=== PATIENT | male | born 1985 | race Caucasian/White ===

== ENCOUNTER 2017-08-21 15:47 | Emergency (ER) | payer OTHER ==
[2017-08-21 16:09] VITALS: BMI 22.6
[2017-08-21 16:10] VITALS: O2SAT 99
[2017-08-21] MEDS ORDERED: Sodium Chloride 0.9% 1,000 ML IV ONE (17:05)
[2017-08-21 18:01] LABS: CHLORIDE 95 mmol/L (98-107)
[2017-08-21 18:02] LABS: SODIUM 138 mmol/L (132-148)
[2017-08-21 18:04] LABS: BILIRUBIN,TOTAL 0.8 mg/dL (0.2-1.3); CARBON DIOXIDE 25 mmol/L (22-30); GFR AFRICAN-AMERICAN > 60
[2017-08-21 18:05] LABS: ALB/GLOB RATIO 1.3 (1.0-2.1); ALKALINE PHOSPHATASE 63 U/L (38-126); ALT/SGPT 48 U/L (21-72); AST/SGOT 25 U/L (17-59); BLOOD UREA NITROGEN 11 mg/dL (9-20); CALCIUM 8.9 mg/dl (8.6-10.4); GLUCOSE,RANDOM 71 mg/dL (75-110); TOTAL PROTEIN 8.1 g/dL (6.3-8.3)
--- NOTE | 2017-08-21 18:06 | C.PDOC ---
History Of Present Illness <Daina Hernandez - Last Filed: 08/21/17 18:58> <Gabriel Lujan - Last Filed: 08/21/17 22:05> 32 yr old male presents to the ER for evaluation of diffuse lower abdominal pain , associated with watery diarrhea for the past 8 days. Patient states " whatever I eat, I have to go to the bathroom afterwards". Patient also reports of decrease appetite. Patient denies fever, chills, chest pain, SOB, nausea, vomiting, blood in the vomit, blood in the diarrhea, dysuria, weakness, numbness or use of antibiotics. Ambulate to Ed for evaluation. (Daina Hernandez ) History Per: Patient History/Exam Limitations: no limitations Onset/Duration Of Symptoms: Days (8) Current Symptoms Are (Timing): Still Present <Daina Hernandez - Last Filed: 08/21/17 18:58> <Gabriel Lujan - Last Filed: 08/21/17 22:05> Time Seen by Provider: 08/21/17 17:04 Chief Complaint (Nursing): Abdominal Pain Past Medical History Reviewed: Historical Data, Nursing Documentation, Vital Signs Family History: States: No Known Family Hx - Social History Hx Tobacco Use: No Hx Alcohol Use: No Hx Substance Use: No - Immunization History Hx Tetanus Toxoid Vaccination: Yes Hx Influenza Vaccination: No Hx Pneumococcal Vaccination: No <Daina Hernandez - Last Filed: 08/21/17 18:58> Vital Signs: Last Vital Signs Temp 98 F 08/21/17 22:00 Pulse 60 08/21/17 22:00 Resp 16 08/21/17 22:00 BP 115/71 08/21/17 22:00 Pulse Ox 99 08/21/17 22:00 Review Of Systems Except As Marked, All Systems Reviewed And Found Negative. Constitutional: Negative for: Fever, Chills Cardiovascular: Negative for: Chest Pain Respiratory: Negative for: Shortness of Breath Gastrointestinal: Positive for: Abdominal Pain (Diffuse lower abdominal pain), Diarrhea (Watery diarrhea. No blood.). Negative for: Nausea, Vomiting Genitourinary: Negative for: Dysuria Neurological: Negative for: Weakness, Numbness <Daina Hernandez - Last Filed: 08/21/17 18:58> Physical Exam - Physical Exam Appears: Non-toxic, No Acute Distress Skin: Warm, Dry, No Rash Head: Normacephalic Eye(s): bilateral: PERRL Nose: No Flaring Oral Mucosa: Moist Throat: No Erythema, No Drooling Neck: Supple Chest: Symmetrical, No Tenderness Cardiovascular: Rhythm Regular, No Murmur Respiratory: No Decreased Breath Sounds, No Accessory Muscle Use, No Rales, No Rhonchi, No Stridor, No Wheezing Gastrointestinal/Abdominal: Soft, Tenderness (Moderate LLQ tenderness.), No Distention, No Guarding, No Rebound Back: No CVA Tenderness Extremity: Normal ROM, No Swelling Neurological/Psych: Oriented x3, Normal Speech, Normal Motor <Daina Hernandez - Last Filed: 08/21/17 18:58> ED Course And Treatment - Laboratory Results Result Diagrams: 08/21/17 17:51 08/21/17 17:51 O2 Sat by Pulse Oximetry: 99 (RA) Pulse Ox Interpretation: Normal Progress Note: Pt remained stable during the ED evaluation. case discussed, sign out to : blood work, CT abd/pelvis, re-eval and dispo pending. <Daina Hernandez - Last Filed: 08/21/17 18:58> - Laboratory Results Result Diagrams: 08/21/17 17:51 08/21/17 17:51 <Gabriel Lujan - Last Filed: 08/21/17 22:05> Medical Decision Making <Daina Hernandez - Last Filed: 08/21/17 18:58> <Gabriel Lujan - Last Filed: 08/21/17 22:05> Medical Decision Making: PLAN: * CT - Abd & Pelvis * CBC * CMP * Urinalysis * Pepcid IVP * Protonix IVP * Zofran IVP * Sodium Chloride IV * (Daina Hernandez) Disposition - Disposition Disposition Time: 18:58 <Daina Hernandez - Last Filed: 08/21/17 18:58> Counseled Patient/Family Regarding: Diagnosis - Disposition Disposition Time: 22:04 - POA Present On Arrival: None <Gabriel Lujan Last Filed: 08/21/17 22:05> - Disposition Referrals: 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 - Scribe Statement The provider has reviewed the documentation as recorded by the Scribe <Daina Hernandez - Last Filed: 08/21/17 18:58> <Gabriel Lujan - Last Filed: 08/21/17 22:05> - Scribe Statement Cassandra Mark All medical record entries made by the Scribe were at my direction and personally dictated by me. I have reviewed the chart and agree that the record accurately reflects my personal performance of the history, physical exam, medical decision making, and the department course for this patient. I have also personally directed, reviewed, and agree with the discharge instructions and disposition. (Daina Hernandez) Physician Patient Turnover Patient Signed Over To: Gabriel Lujan Handoff Comments: blood work, CT abd/pelvis, re-eval, dispo. <Daina Hernandez - Last Filed: 08/21/17 18:58>
[2017-08-21 18:37] LABS: RBC URINE < 1 /hpf (0-3); URINE BILIRUBIN NEGATIVE (NEGATIVE); URINE BLOOD TRACE (NEGATIVE); URINE COLOR Yellow (YELLOW); URINE GLUCOSE (UA) NORMAL (Normal); URINE KETONE NEGATIVE (NEGATIVE); URINE LEUKOCYTE ESTERASE NEG Leu/uL (Negative); URINE PROTEIN NEGATIVE (NEGATIVE); URINE UROBILINOGEN NORMAL mg/dL (0.2-1.0); WBC URINE < 1 /hpf (0-5)
[2017-08-21 18:45] LABS: BASO % 0.6 % (0.0-2.0); EOS # 0.3 K/uL (0.0-0.7); EOS % 5.1 % (0.0-4.0); LYMPH # 1.9 K/uL (1.0-4.3); LYMPH % 29.3 % (20.0-40.0); MEAN CELL VOLUME 87.4 fL (80.0-94.0); MEAN CORPUSCULAR HEMOGLOBIN 31.1 pg (27.0-31.0); MEAN CORPUSCULAR HGB CONC 35.6 g/dL (33.0-37.0); MONO # 0.5 K/uL (0.0-0.8); MONO % 7.3 % (0.0-10.0); NRBC % 0.4 % (0.0-2.0); RED CELL DISTRIBUTION WIDTH 12.9 % (11.5-14.5); WHITE BLOOD COUNT 6.6 K/uL (4.8-10.8)
[2017-08-21] MEDS ORDERED: Iohexol 350mg/ml 100 ML ONE (18:45)
--- NOTE | 2017-08-21 21:13 | CT ---
EXAM: CT Abdomen and Pelvis With Intravenous Contrast EXAM DATE/TIME: 08/21/2017 5:23 PM CLINICAL HISTORY: 32 years old, male; Pain; Abdominal pain; Flank; Left upper quadrant (luq); Additional info: Llq pain TECHNIQUE: Axial computed tomography images of the abdomen and pelvis with intravenous contrast. All CT scans at this facility use one or more dose reduction techniques, viz.: automated exposure control; ma/kV adjustment per patient size (including targeted exams where dose is matched to indication; i.e. head); or iterative reconstruction technique. Coronal and sagittal reformatted images were created and reviewed. CONTRAST: 100 mL of omnipaque 350 administered intravenously. COMPARISON: There are no prior studies for comparison. FINDINGS: Artifacts: Motion artifact degrades image quality. Lower thorax: Heart size is normal. Lung bases are clear ABDOMEN: Liver: There is fatty infiltration of the liver. Gallbladder and bile ducts: unremarkable Pancreas: unremarkable Spleen: unremarkable Adrenals: unremarkable Kidneys and ureters: unremarkable Stomach and bowel: Stomach is incompletely distended which accentuates the gastric wall. Bowel rotation is normal. Streaky and motion limit evaluation of small and large bowel. Proximal small bowel is mildly dilated with scattered air-fluid levels. There is mild wall thickening. Distention decreases in the mid small bowel. There is fluid and air throughout the small bowel. Appendix and terminal ileum are unremarkable. Colon is incompletely distended which limits evaluation. There is minimal diverticulosis Appendix: See above. PELVIS: Bladder: unremarkable Reproductive: Seminal vesicles and prostate are unremarkable. ABDOMEN and PELVIS: Intraperitoneal space: There is no free air or free fluid. Bones/joints: There are no acute osseous abnormalities. Soft tissues: unremarkable Vasculature: Vascular structures are unremarkable. Lymph nodes: There is shotty adenopathy. IMPRESSION: Gastric wall prominence, underdistention versus true thickening; ileus with possible enteritis, no obstruction; no appendicitis or diverticulitis; fatty liver
[2017-08-21 22:01] VITALS: BP 115/71; PULSE 60; RESP 16; TEMP 98
== END 2017-08-21 22:15 | disposition home or self-care (01) ==
LOC: C.ER 15:47
DX: K52.9 Noninfective gastroenteritis and colitis, unspecified (principal); R10.32 Left lower quadrant pain
CPT/HCPCS: 74177; 80053; 81001; 83690; 85025; 96361; 96374; 96375; 99284; C9113; J2405; J7040; Q9967

== ENCOUNTER 2017-10-25 12:30 | Emergency (ER) | payer OTHER ==
[2017-10-25 12:30] VITALS: BMI 22.6
--- NOTE | 2017-10-25 14:34 | CT ---
PROCEDURE: CT OF THE TEMPORAL BONES WITHOUT CONTRAST HISTORY: hemotympanium R side, r/o ana maria distruction COMPARISON: None available. TECHNIQUE: High resolution axial images of the temporal bones were obtained. Coronal and sagittal reformats were generated. Radiation dose: Total exam DLP = 674 mGy-cm. This CT exam was performed using one or more of the following dose reduction techniques: Automated exposure control, adjustment of the mA and/or kV according to patient size, and/or use of iterative reconstruction technique. FINDINGS: RIGHT TEMPORAL BONE: RIGHT MIDDLE EAR: There is minimal soft tissue thickening adjacent to the ossicles. No evidence of bony erosion RIGHT INNER EAR: Cochlea: Normal Semicircular canals: Normal RIGHT MASTOID AIR CELLS: There is partial opacification of a large mastoid air cell inferiorly. This is of uncertain significance. The remaining air cells are well-aerated. RIGHT INTERNAL AUDITORY CANAL: Normal RIGHT EXTERNAL AUDITORY CANAL: Normal RIGHT VESTIBULAR AND COCHLEAR AQUEDUCT: Normal OTHER: LEFT TEMPORAL BONE: LEFT MIDDLE EAR: Normal LEFT INNER EAR: Cochlea: Normal Semicircular canals: Normal LEFT MASTOID AIR CELLS: Normal LEFT INTERNAL AUDITORY CANAL: Normal LEFT EXTERNAL AUDITORY CANAL: Normal LEFT VESTIBULAR AND COCHLEAR AQUEDUCTS: Normal OTHER FINDINGS: There is moderate mucosal thickening in the maxillary sinuses. There is partial opacification of the ethmoid air cells.. IMPRESSION: No evidence of fracture or bony destruction in the right temporal bone. No evidence of significant mastoiditis or otitis media. Severe mucosal thickening in the maxillary sinuses and partial opacification of ethmoid sinuses.
--- NOTE | 2017-10-25 14:44 | C.PDOC ---
History Of Present Illness 32 y/o male presents to the ER complaining of right ear pain today. Patient states that there was no trauma, injury, URI symptoms, prior illness, and headache. Has no other complaints. Time Seen by Provider: 10/25/17 12:52 Chief Complaint (Nursing): ENT Problem History Per: Patient History/Exam Limitations: no limitations Onset/Duration Of Symptoms: Hrs Current Symptoms Are (Timing): Still Present Past Medical History Reviewed: Historical Data, Nursing Documentation, Vital Signs Vital Signs: Last Vital Signs Temp 98.4 F 10/25/17 15:09 Pulse 76 10/25/17 15:09 Resp 18 10/25/17 15:09 BP 127/84 10/25/17 15:09 Pulse Ox 98 10/25/17 15:34 - Medical History PMH: No Chronic Diseases Surgical History: No Surg Hx Family History: States: No Known Family Hx - Social History Hx Tobacco Use: No Hx Alcohol Use: No Hx Substance Use: No - Immunization History Hx Tetanus Toxoid Vaccination: Yes Hx Influenza Vaccination: No Hx Pneumococcal Vaccination: No Review Of Systems Constitutional: Negative for: Fever ENT: Positive for: Ear Pain. Negative for: Throat Pain Respiratory: Negative for: Cough, Sputum Skin: Positive for: Rash (red painless, non pruritic rash to the forehead). Negative for: Lesions Neurological: Negative for: Headache Physical Exam - Physical Exam Appears: Well, Non-toxic, Other (mild painful distress) Skin: Normal Color, Warm, Rash (+erythematous circular rash with central clearing to the R side of the forehead) Head: Atraumatic, Normacephalic Eye(s): bilateral: Normal Inspection, PERRL Ear(s): Right: Other (blood noted behind right TM, ear canal is wnl, no tenderness to the mastoid) Nose: Normal Oral Mucosa: Moist Neck: Supple Chest: Symmetrical Cardiovascular: Rhythm Regular Respiratory: Normal Breath Sounds, No Accessory Muscle Use Neurological/Psych: Oriented x3, Normal Speech, Normal Cognition ED Course And Treatment O2 Sat by Pulse Oximetry: 98 (RA) Pulse Ox Interpretation: Normal - Physician Consult Information Time Consulting Physician Contacted: 13:11 Physician Contacted: Outcome Of Conversation: reccommended a CT temporal bone w/o contrast. Medical Decision Making Medical Decision Making: Impression: Right Ear Pain Plan: Tylenol 650 mg PO IAC w/o Contrast Time: 1400 CT IAC FINDINGS: RIGHT TEMPORAL BONE: RIGHT MIDDLE EAR: There is minimal soft tissue thickening adjacent to the ossicles. No evidence of bony erosion RIGHT INNER EAR: Cochlea: Normal Semicircular canals: Normal RIGHT MASTOID AIR CELLS: There is partial opacification of a large mastoid air cell inferiorly. This is of uncertain significance. The remaining air cells are well-aerated. RIGHT INTERNAL AUDITORY CANAL: Normal RIGHT EXTERNAL AUDITORY CANAL: Normal RIGHT VESTIBULAR AND COCHLEAR AQUEDUCT: Normal OTHER: LEFT TEMPORAL BONE: LEFT MIDDLE EAR: Normal LEFT INNER EAR: Cochlea: Normal Semicircular canals: Normal LEFT MASTOID AIR CELLS: Normal LEFT INTERNAL AUDITORY CANAL: Normal LEFT EXTERNAL AUDITORY CANAL: Normal LEFT VESTIBULAR AND COCHLEAR AQUEDUCTS: Normal OTHER FINDINGS: There is moderate mucosal thickening in the maxillary sinuses. There is partial opacification of the ethmoid air cells.. IMPRESSION: No evidence of fracture or bony destruction in the right temporal bone. No evidence of significant mastoiditis or otitis media. Severe mucosal thickening in the maxillary sinuses and partial opacification of ethmoid sinuses. Disposition Counseled Patient/Family Regarding: Studies Performed, Diagnosis, Need For Followup - Disposition Referrals: Alberto Gutierrez MD [Staff Provider] - Disposition: HOME/ ROUTINE Disposition Time: 14:43 Condition: STABLE Additional Instructions: Follow up with ENT referral provided in 1-2 days for further evaluation. 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 - Scribe Statement The provider has reviewed the documentation as recorded by the Melissaibzak Pate All medical record entries made by the Melissaibzak were at my direction and personally dictated by me. I have reviewed the chart and agree that the record accurately reflects my personal performance of the history, physical exam, medical decision making, and the department course for this patient. I have also personally directed, reviewed, and agree with the discharge instructions and disposition.
[2017-10-25 15:10] VITALS: BP 127/84; PULSE 76; RESP 18; TEMP 98.4
[2017-10-25 15:27] VITALS: O2SAT 98
== END 2017-10-25 14:50 | disposition home or self-care (01) ==
LOC: C.ER 12:30
DX: H73.891 Other specified disorders of tympanic membrane, right ear (principal); B35.4 Tinea corporis

== ENCOUNTER 2018-04-30 16:26 | Emergency (ER) | payer SELFPAY ==
[2018-04-30 16:26] VITALS: BMI 22.6
[2018-04-30 16:31] VITALS: BP 142/84; PULSE 74; RESP 20; TEMP 98.5; O2SAT 98
--- NOTE | 2018-04-30 17:02 | RAD ---
PROCEDURE: Right Index finger radiographs. HISTORY: pain COMPARISON: None. TECHNIQUE: AP radiograph of the right hand, as well as spot oblique and lateral images of index finger were obtained. FINDINGS: RIGHT INDEX FINGER: Normal right index finger, without fracture or focal lesion. Remainder of the right hand (as seen on the AP view) grossly intact. JOINTS: Normal. SOFT TISSUES: Normal. OTHER FINDINGS: None. IMPRESSION: Normal right index finger radiographs.
--- NOTE | 2018-04-30 17:06 | C.PDOC ---
History Of Present Illness 32 yo male come in for evaluation of Right index finger swelling gradually developed for past 15 days. Pt reports, " pain is intermittent only on index movement". Otherwise, pt denies known trauma or injury, fever, chills, deformity , weakness, sensory or vascular deficits to Right hand. Ambulate to ED for evaluation, no t in any apparent distress. Time Seen by Provider: 04/30/18 16:33 Chief Complaint (Nursing): Finger,Hand,&Wrist History Per: Patient Past Medical History Reviewed: Historical Data, Nursing Documentation, Vital Signs Vital Signs: Last Vital Signs Temp 98.5 F 04/30/18 16:28 Pulse 74 04/30/18 16:28 Resp 20 04/30/18 16:28 BP 142/84 04/30/18 16:28 Pulse Ox 98 04/30/18 16:28 - Medical History PMH: Asthma Family History: States: Unknown Family Hx - Social History Hx Tobacco Use: No Hx Alcohol Use: No Hx Substance Use: No - Immunization History Hx Tetanus Toxoid Vaccination: Yes Hx Influenza Vaccination: No Hx Pneumococcal Vaccination: No Review Of Systems Except As Marked, All Systems Reviewed And Found Negative. Constitutional: Negative for: Fever, Chills ENT: Negative for: Throat Pain Musculoskeletal: Positive for: Hand Pain Skin: Negative for: Rash, Lesions Neurological: Negative for: Weakness, Numbness Physical Exam - Physical Exam Appears: Well, Non-toxic, No Acute Distress Skin: Normal Color, Warm, No Rash Head: Normacephalic Eye(s): bilateral: PERRL Extremity: Normal ROM (FAROM to Right index, no neurovascular deficits.), Tenderness (mild over Right 2nd PIPJ with small soft mass likely cyst, no edema. NO cellulitis, no flactulance.), Capillary Refill (less than 2sec to Right 2nd finger), No Deformity, No Swelling Neurological/Psych: Oriented x3, Normal Speech, Normal Motor, Normal Sensation, Normal Reflexes ED Course And Treatment O2 Sat by Pulse Oximetry: 98 Pulse Ox Interpretation: Normal - Other Rad Right 2nd finger X-Ray: Interpreted by Me, Viewed By Me Interpretation: (-) acute fx or dislocation Progress Note: On re-eval, pot is afebrile, hemodynamicaly stable. Right hand: exam c/w right 2nd PIPJ intra-articular cyst r/o ganglion cyst. FAROM, noneurovascular deficits, no clelulitis. Imaging review (-) acute fx or dislocation. Pt advised and ref. to F/u with hand specialsit. Return to ED if any new changes. Disposition Counseled Patient/Family Regarding: Diagnosis, Need For Followup, Rx Given - Disposition Referrals: [facility] at [facility] [Outside] Laure Guerrero MD [Staff Provider] - Disposition: HOME/ ROUTINE Disposition Time: 16:59 Condition: STABLE Additional Instructions: Follow up with hand specialist in 2-3 days for further evaluation and treatment return if any new changes. Instructions: Ganglion Cyst Print Language: PRYDEINIG - Clinical Impression Clinical Impression: Ganglion cyst
== END 2018-04-30 17:21 | disposition home or self-care (01) ==
LOC: C.ER 16:26
DX: M67.441 Ganglion, right hand (principal)

== ENCOUNTER 2018-08-14 14:38 | Emergency (ER) | payer OTHER ==
[2018-08-14 14:38] VITALS: BMI 22.6
[2018-08-14] MEDS ORDERED: Alum-Mag Hydrox-Simethicone Susp (30 mL) PO STA (15:24)
[2018-08-14] MEDS ORDERED: Sodium Chloride 0.9% 1,000 ML IV ONE (15:24)
[2018-08-14] MEDS ORDERED: Alum-Mag Hydrox-Simethicone Susp (30 mL) ONE (15:43)
[2018-08-14] MEDS ORDERED: Sodium Chloride 0.9% 1,000 ML ONE (15:43)
[2018-08-14 15:45] LABS: BASO % 0.6 % (0.0-2.0); EOS # 0.3 K/uL (0.0-0.7); EOS % 4.1 % (0.0-4.0); HEMOGLOBIN 15.5 g/dL (12.0-18.0); LYMPH # 1.9 K/uL (1.0-4.3); LYMPH % 29.1 % (20.0-40.0); MEAN CELL VOLUME 87.1 fL (80.0-94.0); MEAN CORPUSCULAR HEMOGLOBIN 30.9 pg (27.0-31.0); MEAN CORPUSCULAR HGB CONC 35.4 g/dL (33.0-37.0); MEAN PLATELET VOLUME 8.2 fL (7.2-11.7); MONO # 0.6 K/uL (0.0-0.8); MONO % 9.1 % (0.0-10.0); NEUT # 3.7 K/uL (1.8-7.0); NEUT % 57.1 % (50.0-75.0); NRBC % 0.2 % (0.0-2.0); RBC 5.04 Mil/uL (4.40-5.90); RED CELL DISTRIBUTION WIDTH 13.1 % (11.5-14.5); WHITE BLOOD COUNT 6.4 K/uL (4.8-10.8)
--- NOTE | 2018-08-14 15:47 | C.PDOC ---
History Of Present Illness 32-year-old male, presents to the emergency department with complaints of epigastric abdominal paint that started yesterday. Patient denies any nausea/vomiting, fever or chills. No other complaints at this time. Time Seen by Provider: 08/14/18 15:16 Chief Complaint (Nursing): Abdominal Pain History Per: Patient History/Exam Limitations: no limitations Current Symptoms Are (Timing): Still Present Severity: Moderate Location Of Pain/Discomfort: Epigastric Radiation Of Pain To:: None Quality Of Discomfort: Burning Alleviating Factors: OTC Meds Recent travel outside of the [place]: No Past Medical History Reviewed: Historical Data, Nursing Documentation, Vital Signs Vital Signs: Last Vital Signs Temp 98 F 08/14/18 14:49 Pulse 70 08/14/18 14:49 Resp 18 08/14/18 14:49 BP 128/76 08/14/18 14:49 Pulse Ox 97 08/14/18 14:49 - Medical History PMH: Asthma Surgical History: No Surg Hx Family History: States: No Known Family Hx - Social History Hx Tobacco Use: No Hx Alcohol Use: No Hx Substance Use: No - Immunization History Hx Tetanus Toxoid Vaccination: Yes Hx Influenza Vaccination: No Hx Pneumococcal Vaccination: No Review Of Systems Constitutional: Negative for: Fever, Chills Gastrointestinal: Positive for: Nausea, Abdominal Pain. Negative for: Vomiting Genitourinary: Negative for: Dysuria Musculoskeletal: Negative for: Neck Pain, Back Pain Neurological: Negative for: Weakness, Numbness Physical Exam - Physical Exam Appears: Non-toxic, No Acute Distress Skin: Warm, Dry, No Rash Head: Atraumatic, Normacephalic Eye(s): bilateral: Normal Inspection, PERRL, EOMI Nose: Normal Oral Mucosa: Moist Lips: Normal Appearing Neck: Normal ROM Cardiovascular: Rhythm Regular, No Murmur Respiratory: Normal Breath Sounds, No Accessory Muscle Use Gastrointestinal/Abdominal: Soft, Tenderness (epigastric), No Guarding, No Rebound Extremity: Normal ROM, No Deformity Neurological/Psych: Oriented x3, Normal Speech Gait: Steady ED Course And Treatment - Laboratory Results Result Diagrams: 08/14/18 15:31 08/14/18 15:31 Lab Interpretation: Normal O2 Sat by Pulse Oximetry: 97 Pulse Ox Interpretation: Normal (RA) Progress Note: Treated with pepcid IV and maalox. On re-evaluation abdomen soft non-tender. discharged in stable condition Reassessment Condition: Improved Disposition Counseled Patient/Family Regarding: Studies Performed, Diagnosis, Need For Followup, Rx Given - Disposition Referrals: [facility] [Outside] [facility] [Outside] Disposition: HOME/ ROUTINE Disposition Time: 17:00 Condition: STABLE Additional Instructions: Follow up at clinic for further evaluation Return to ED if any increase symptoms Prescriptions: Famotidine [Pepcid AC] 20 mg PO BID #10 tablet Instructions: Gastritis, Acute Abdomen (Belly Pain), Child (DC) Forms: [employer] (Wolof) - POA Present On Arrival: None - Clinical Impression Clinical Impression: Gastritis, Abdominal pain - Scribe Statement The provider has reviewed the documentation as recorded by the Scribe (Katherine Guerin) All medical record entries made by the Scribe were at my direction and personally dictated by me. I have reviewed the chart and agree that the record accurately reflects my personal performance of the history, physical exam, medical decision making, and the department course for this patient. I have also personally directed, reviewed, and agree with the discharge instructions and disposition.
[2018-08-14 15:51] LABS: ALB/GLOB RATIO 1.4 (1.0-2.1); ALBUMIN 4.7 g/dL (3.5-5.0); ALT/SGPT 67 U/L (21-72); AST/SGOT 38 U/L (17-59); BLOOD UREA NITROGEN 9 mg/dL (9-20); CALCIUM 9.3 mg/dl (8.6-10.4); GFR NON-AFRICAN AMERICAN > 60; LIPASE 63 U/L (23-300)
[2018-08-14 16:20] LABS: URINE BACTERIA RARE (<OCC); URINE BILIRUBIN NEGATIVE (NEGATIVE); URINE BLOOD NEGATIVE (NEGATIVE); URINE CLARITY Clear (Clear); URINE COLOR Straw (YELLOW); URINE GLUCOSE (UA) NORMAL (Normal); URINE LEUKOCYTE ESTERASE NEG Leu/uL (Negative); URINE PROTEIN NEGATIVE (NEGATIVE); URINE UROBILINOGEN NORMAL mg/dL (0.2-1.0)
[2018-08-14 17:11] VITALS: BP 119/70; PULSE 59; RESP 12; TEMP 97.9
[2018-08-14 17:54] VITALS: O2SAT 97
== END 2018-08-14 17:32 | disposition home or self-care (01) ==
LOC: C.ER 14:38
DX: K29.70 Gastritis, unspecified, without bleeding (principal)
CPT/HCPCS: 80053; 81001; 83690; 85025; 96361; 96374; 99285; J7030